=== PATIENT | female | born 1950 | race African-American/Black ===

== ENCOUNTER → 2016-12-29 | Day surgery (SDC) | payer OTHER ==
[~2016-12-29] VITALS: Ht 160 cm; Wt 101.8 kg
[~2016-12-29] MED LIST: DEXAMETHASONE SOD PHOS 4 MG/ML VIAL ONE; FAMOTIDINE 20 MG/2 ML VIAL ONE; FERRIC SUBSULFATE 8 ML TOP SOLN TOPICAL ONE; INSULIN HUMAN REGULAR 1,000 UNITS/10 ML VIAL SQ PRN; KETOROLAC TROMETHAMINE 30 MG/ML (IVP) VIAL ONE; LACTATED RINGER'S 1000 ML IV SCH; LISI20TA3 PO; METOPROLOL TARTRATE 25 MG TAB PO PRN; MIDAZOLAM HCL 2 MG/2 ML VIAL ONE; OXYC1TAB63 PO; PROPOFOL 200 MG/20 ML AMP IV ONE; SILVER NITR/POTASSIUM NITRATE APPLICATORS TOPICAL ONE; SODIUM CHLORID 0.9% 500 ML IV SCH; fentaNYL CITRATE 250 MCG/5 ML AMP ONE
[2016-12-29 11:32] VITALS: BP 147/82; PULSE 87; RESP 18; TEMP 98.3; O2SAT 100
[2016-12-29 15:00] VITALS: BP 158/68; PULSE 77; RESP 16; TEMP 97.7; O2SAT 97
--- NOTE | 2016-12-29 23:37 | MP ---
cc: ASHLIE CORDERO MD,GIULIA VENTURA,STACEY Hopkins MD DATE OF SURGERY: 12/29/2016 PREOPERATIVE DIAGNOSIS: 1. Enlarged uterus. 2. Thickened endometrial stripe. 3. Postmenopausal bleeding. POSTOPERATIVE DIAGNOSIS: 1. Enlarged uterus. 2. Thickened endometrial stripe. 3. Postmenopausal bleeding. PROCEDURE Examination under anesthesia, fractional dilation and curettage. SURGEON Stacey Ventura MD. RELAY WORKER Bishop assistant controller ANESTHESIA: Laryngeal mask anesthesia ESTIMATED BLOOD LOSS 20 cc HISTORY This is a 66-year-old female who has had postmenopausal bleeding a number of months. The exact duration is uncertain, found on imaging to have thickened endometrial stripe. Pap smear was normal. She declined office biopsy but was willing to undergo examination under anesthesia, fractional dilation and curettage, and she presents now for that endeavor. FINDINGS: On examination under anesthesia, there was no appreciably enlarged inguinal lymph nodes. External genitalia without mass or lesion. The vaginal mucosa is normal. The cervix grossly appears normal. The os is dilated and there is blood coming down from the uterus through the cervical os. The uterine cavity sounds to approximately 11 cm. The tissue obtained from the endocervix was relatively scant, however, the tissue obtained from the endometrium was high volume of polypoid exophytic tissue that was suspicious for neoplasm. PROCEDURE The patient taken to the operating room placed in dorsal lithotomy position after laryngeal mask anesthesia was administered. Time-out was undertaken. The patient was identified by sight, recognition and hospital ID bracelet and the proposed procedure was reviewed and confirmed. Exam under anesthesia was performed with findings as described above. She was prepped, draped in sterile fashion, in-and-out Beaulieu catheter to drain the bladder. The cervix was grasped, uterine cavity was sounded, endocervical curettings were obtained. Multiple passes circumferentially with a tissue combined as endocervical curetting. The cervix was further dilated and then endometrial curettings were performed. There were smooth areas on the endometrium with polypoid tissue against the left uterine wall near the fundus in the lower uterine segment in the ventral portion of the uterus. At the end of curetting the surfaces of the endometrium were pretty much gritty, circumferentially. There was good hemostasis. Monsel's solution was used on the tenaculum sites to render them hemostatic. There was no uterine bleeding. There were no remaining foreign objects in the vagina. Preliminary and final counts were correct. She was returned to dorsal supine position and was pending reversal of anesthesia when I left the operating room to precede her to the Post Anesthesia Care Unit. MD ELTON Harrison/BASILIO /1:52 PM /11:31 PM
== END | disposition home or self-care (01) ==
LOC: HSDC 10:44
PROVIDERS: ATTEND Obstetrics & Gynecology Gynecologic Oncology
DX: C54.1 Malignant neoplasm of endometrium (principal); N95.0 Postmenopausal bleeding; N85.2 Hypertrophy of uterus
CPT/HCPCS: 00940; 58120; 86850; 86900; 86901; 88305; J1100; J1885; J2250; J3010; J7120

== ENCOUNTER 2017-02-15 08:30 | Observation (INO) | payer OTHER ==
[~2017-02-15] VITALS: Ht 160 cm; Wt 100.1 kg
[~2017-02-15 08:30] MED LIST changes: -DEXAMETHASONE SOD PHOS 4 MG/ML VIAL ONE; -FAMOTIDINE 20 MG/2 ML VIAL ONE; -FERRIC SUBSULFATE 8 ML TOP SOLN TOPICAL ONE; -INSULIN HUMAN REGULAR 1,000 UNITS/10 ML VIAL SQ PRN; -KETOROLAC TROMETHAMINE 30 MG/ML (IVP) VIAL ONE; -LACTATED RINGER'S 1000 ML IV SCH; -METOPROLOL TARTRATE 25 MG TAB PO PRN; -MIDAZOLAM HCL 2 MG/2 ML VIAL ONE; -OXYC1TAB63 PO; -PROPOFOL 200 MG/20 ML AMP IV ONE; -SILVER NITR/POTASSIUM NITRATE APPLICATORS TOPICAL ONE; -SODIUM CHLORID 0.9% 500 ML IV SCH; -fentaNYL CITRATE 250 MCG/5 ML AMP ONE
[2017-02-15] MEDS ORDERED: SODIUM CHLORID 0.9% 500 ML IV PRN (09:15)
[2017-02-15] MEDS ORDERED: METOPROLOL TARTRATE 25 MG TAB PO PRN (09:15)
[2017-02-15] MEDS ORDERED: LEVOFLOXACIN 500 MG PREMIX INJ 100 ML IV SCH (09:15)
[2017-02-15] MEDS ORDERED: METRONIDAZOLE 500 MG/100 ML ISONTONIC SOLN IV SCH (09:15)
[2017-02-15] MEDS ORDERED: INSULIN HUMAN REGULAR 1,000 UNITS/10 ML VIAL SQ PRN (09:15)
[2017-02-15] MEDS ORDERED: CHLORHEXIDINE GLUCONATE 2 % 1 PACK (2 CLOTHS) TOPICAL PRN (09:15)
[2017-02-15] MEDS ORDERED: HEPARIN SODIUM - SQ 10,000 UNITS/ML VIAL SQ SCH (09:15)
[2017-02-15] MEDS ORDERED: POVIDONE IODINE 5% (ANTISEPSIS KIT) 4 APPLICATIONS EACH NARE PRN (09:15)
[2017-02-15 09:26] VITALS: BP 154/81; PULSE 89; RESP 20; TEMP 98.1; O2SAT 98
[2017-02-15] MEDS: LACTATED RINGER'S 1000 ML IV PRN ×2 (09:40→19:50)
[2017-02-15] MEDS ORDERED: PROPOFOL 200 MG/20 ML AMP IV ONE (10:19)
[2017-02-15] MEDS ORDERED: LACTATED RINGER'S 1000 ML INJ 2,000 ML IV ONE (10:19)
[2017-02-15] MEDS ORDERED: ONDANSETRON HCL 4 MG/2 ML VIAL IV PUSH ONE (10:19)
[2017-02-15] MEDS ORDERED: ACETAMINOPHEN 1000 MG/100 ML VIAL IV ONE (10:47)
[2017-02-15] MEDS ORDERED: FAMOTIDINE 20 MG/2 ML VIAL ONE (10:47)
[2017-02-15] MEDS ORDERED: MIDAZOLAM HCL 2 MG/2 ML VIAL ONE (10:48)
[2017-02-15] MEDS ORDERED: fentaNYL CITRATE 250 MCG/5 ML AMP ONE ×3 (10:48→15:05)
[2017-02-15] MEDS ORDERED: HYDROmorphone HCL PF 2 MG/ML VIAL ONE (11:50)
[2017-02-15] MEDS ORDERED: LIDOCAINE 1%/EPINEPHrine 1:100,000 SOLN 30 ML VIAL INFIL ONE (12:00)
--- NOTE | 2017-02-15 13:56 | EKG ---
Date Performed: 02/15/2017 Time Performed: 09:32:35 PTAGE: 66 years EKG: Sinus rhythm NORMAL ECG NO PREVIOUS TRACING DOCTOR: Debi Gamble Interpretating Date/Time 02/15/2017 13:55:40
[2017-02-15] MEDS ORDERED: SUGAMMADEX SODIUM 200 MG/2 ML VIAL IV PUSH ONE ×2 (14:10)
[2017-02-15] MEDS ORDERED: diphenhydrAMINE HCL 25 MG CAP PO PRN (14:45)
[2017-02-15] MEDS ORDERED: ONDANSETRON HCL 4 MG/2 ML VIAL IVP PRN (14:45)
[2017-02-15] MEDS ORDERED: SODIUM CHLORIDE 0.9% FLUSH 10 ML FLUSH IV FLUSH PRN (14:45)
[2017-02-15] MEDS ORDERED: LORazepam 0.5 MG TAB PO PRN (14:45)
[2017-02-15] MEDS ORDERED: oxyCODONE/ACETAMINOPHEN 5 MG/325 MG TAB PO PRN ×2 (14:45)
[2017-02-15] MEDS: KETOROLAC TROMETHAMINE 30 MG/ML (IVP) VIAL IVP SCH ×2 (15:00→20:02)
[2017-02-15] MEDS: D5-1/2 NS + KCL 20 MEQ INJ 1,000 ML IV SCH (15:00)
[2017-02-15] MEDS ORDERED: DO NOT ADM ANY ANTICOAGULANT DRUGS PRN (15:04)
[2017-02-15 16:51] VITALS: BP 147/69; PULSE 88; RESP 16; TEMP 97; O2SAT 97
[2017-02-15 20:00] VITALS: BP 126/60; PULSE 71; RESP 18; TEMP 96; O2SAT 100
[2017-02-15] MEDS: SODIUM CHLORIDE 0.9% FLUSH 10 ML FLUSH IV FLUSH SCH (20:02)
[2017-02-16] VITALS: BP 121/69; PULSE 69; RESP 17; TEMP 97; O2SAT 96
[2017-02-16] MEDS: D5-1/2 NS + KCL 20 MEQ INJ 1,000 ML IV SCH (01:48)
[2017-02-16] MEDS: KETOROLAC TROMETHAMINE 30 MG/ML (IVP) VIAL IVP SCH ×2 (01:48→07:45)
[2017-02-16 04:00] VITALS: BP 135/67; PULSE 63; RESP 16; TEMP 96.4; O2SAT 100
[2017-02-16 07:14] LABS: AUTOMATED NEUTROPHIL # 13.8 TH/MM3 (1.8-7.7); BASOPHIL % 0.2 % (0.0-2.0); HEMATOCRIT 33.2 % (35.0-46.0); HEMO FLAGS AUTO DIFF; LYMPH % 6.8 % (9.0-44.0); LYMPHOCYTE # 1.1 TH/MM3 (1.0-4.8); MEAN CELL VOLUME 77.8 FL (80.0-100.0); MEAN CORPUSCULAR HEMOGLOBIN 24.8 PG (27.0-34.0); MEAN CORPUSCULAR HGB CONC 31.9 % (32.0-36.0); MONO % 6.6 % (0.0-8.0); NEUT % 86.4 % (16.0-70.0); PLATELET COUNT 222 TH/MM3 (150-450); RED BLOOD COUNT 4.27 MIL/MM3 (4.00-5.30); RED CELL DISTRIBUTION WIDTH 14.6 % (11.6-17.2)
[2017-02-16 07:18] LABS: BICARBONATE 24.4 MEQ/L (21.0-32.0)
[2017-02-16 07:24] LABS: POTASSIUM 4.1 MEQ/L (3.5-5.1)
[2017-02-16] MEDS: SODIUM CHLORIDE 0.9% FLUSH 10 ML FLUSH IV FLUSH SCH (07:45)
[2017-02-16] MEDS ORDERED: OXYC1TAB63 PO (07:46)
[2017-02-16 08:00] VITALS: BP 133/60; PULSE 79; RESP 18; TEMP 98.1; O2SAT 97
[2017-02-16 08:11] LABS: PLATELET ESTIMATE SMEAR NORMAL (NORMAL)
[2017-02-16 08:12] LABS: PLATELET MORPHOLOGY NORMAL (NORMAL); SCAN/DIFF AUTO DIFF CONFIRMED
[2017-02-16] MEDS ORDERED: NON-FORMULARY DRUG (Lisinopril-Hctz 1 TAB) PO SCH (09:00)
[2017-02-16] MEDS ORDERED: LISINOPRIL 20 MG TAB PO SCH (09:00)
[2017-02-16] MEDS ORDERED: HYDROCHLOROTHIAZIDE 25 MG TAB PO SCH (09:00)
--- NOTE | 2017-02-17 09:46 | MP ---
cc: ASHLIE CORDERO MD,GIULIA VENTURA,STACEY Hopkins MD DATE OF SURGERY 02/15/2017 PREOPERATIVE DIAGNOSES 1. Grade 2 endometrial adenocarcinoma. 2. Enlarged uterus, leiomyomas. POSTOPERATIVE DIAGNOSES 1. Grade 2 endometrial adenocarcinoma. 2. Enlarged uterus, leiomyomas. PROCEDURE Robotic-assisted laparoscopic hysterectomy, bilateral salpingo-oophorectomy. 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 ANESTHESIA General endotracheal anesthesia. ESTIMATED BLOOD LOSS 200 cc. IV FLUIDS 2000 cc. URINE OUTPUT 300 cc. HISTORY This is a 66-year-old female with postmenopausal bleeding, who underwent endometrial sampling. Biopsy showed a grade 2 endometrial adenocarcinoma. Exam showed an enlarged uterus. She was counseled regarding these findings and presents for surgical management. STATEMENT OF COMPLEXITY The complexity of this case was increased due to the markedly enlarged size of the uterus as well as increased body habitus, 101 kg, increasing the technical difficulties of the case, requiring additional time to accomplish surgical objectives and modifier should be applied accordingly. FINDINGS The uterine cavity sounded to approximately 12 cm. The uterus itself was enlarged to approximately 14-cm with some lobular changes suggestive of leiomyomas. The tubes and ovaries grossly appeared normal. There were no appreciably enlarged pelvic or para-aortic lymph nodes. The peritoneal surfaces were smooth. There were no peritoneal implants. The uterus once removed was evaluated by pathologist. The primary tumor was approximately 2 cm in diameter. It was exophytic, was grossly confined to the endometrium with no overt evidence of invasion, no endocervical extension, no other overt cancer-related abnormality detected. Leiomyomas were seen throughout the uterine wall. PROCEDURE The patient was taken to the operating room, placed in dorsal lithotomy position. After general endotracheal anesthesia was administered time-out was undertaken. The patient was identified by [place] ID bracelet and the proposed procedure was reviewed and confirmed. She was carefully positioned in padded Stan stirrups. Her arms were padded and secured to the sides. She was further secured to the operating table with egg crate padding tape in across chest over the shoulder fashion. All sites noted be properly aligned with no malalignments or pressure points. She was prepped and draped in sterile fashion, placed in high lithotomy position, cervix grasped, uterine cavity sounded cervix dilated and a large V-Care manipulator inserted and secured in the usual fashion, Beaulieu catheter placed in the bladder. She was returned to low lithotomy position. Change of sterile gloves was undertaken. We confirmed an orogastric tube in the stomach on suction. With manual elevation of the abdominal wall and direct laparoscopic visualization, a 5-mm cannula was introduced into the left upper quadrant and atraumatic entry was confirmed. Carbon dioxide gas was insufflated into the peritoneal cavity. A 12-mm cannula was placed in the midline above the umbilicus, an 8-mm cannula was placed in right upper quadrant. In the left lateral quadrant the original 5 exchanged for an 8-mm cannula. She was placed in Trendelenburg position. Peritoneal washings were obtained for cytology. The anatomy was surveyed with findings as described above. Three Ray-Melissa sponges were placed around the root of the small bowel mesentery, the robotic system brought into the operative field and attached in the usual fashion. Monopolar scissors, fenestrated bipolar forceps and ProGrasp manipulators were placed in arms #1, 2 and 3 respectively and I took my place at the surgeon's console. The right round ligament was isolated, cauterized, transected. The anterior and posterior leaves of the broad ligament were opened. The right ureter was identified. The right infundibulopelvic ligament was isolated. The intervening peritoneum was opened. The infundibulopelvic ligament was isolated to the level of the pelvic brim where it was cauterized and transected. The posterior peritoneum was opened along the right side of the uterus and cervix and the right vesicouterine peritoneum was dissected off the lower uterine segment and cervix. The right uterine vessels were skeletonized and cauterized. Attention was directed toward the left side where the left round ligament was isolated, cauterized and transected. The anterior and posterior leaves of the broad ligament were opened. The left ureter was identified, the left infundibulopelvic ligament was isolated. The intervening peritoneum was opened. The infundibulopelvic ligament was isolated to the level of the pelvic brim where it was cauterized and transected. Posterior peritoneum was opened along the left side of the uterus and cervix and the left vesicouterine peritoneum was dissected off the lower uterine segment and cervix. The left uterine vessels were skeletonized, cauterized and transected as were the cardinal, paracervical and uterosacral ligaments. Attention was redirected to the right side where now the uterine vessels were transected. The cardinal, paracervical and uterosacral ligaments were isolated, cauterized and transected in a stepwise fashion. Circumferential colpotomy was performed following the wide perimeter of the V-Care manipulator and from this point I left the surgeon's console to the bedside to help facilitate delivery of the specimen which was quite large relative to the pelvic outlet. With manipulation, repositioning, countertraction with tenaculums and slow, steady efforts, the specimen was able to be delivered in an atraumatic fashion. Specimen included uterus, cervix, tubes and ovaries and a pneumooccluder balloon was placed in the vagina to maintain pneumoperitoneum. I returned to the surgeon's console. Instruments 1 and 3 were exchanged for needle drivers as a 0 Vicryl suture was introduced. The vaginal cuff was closed starting at the left corner, a full-thickness closure including the edge of the uterosacral ligament and posterior peritoneum, tied via instrument tie. The suture was held on countertraction as a running continuous closure, full-thickness was carried across the vaginal apex to the contralateral corner where it was similarly secured, fixed and tied. The needle was cut and removed. The integrity of the bladder was confirmed by filling the bladder with saline dyed with methylene blue. There was a good margin between the vaginal cuff suture line and the edge of the bladder. There were no weak spots or thin spots, no extravasation of dye. Good peristalsis of ureters bilaterally and the bladder was drained. The pelvis was thoroughly irrigated, rendered free of blood and clot and hemostatic Yared powder was placed across the vaginal cuff and lateral pelvic sidewalls. Preliminary pathology came back showing a small noninvasive tumor. It was felt that staging lymphadenectomy would be associated with morbidity that exceeded benefit. It was felt that all reasonable surgical objectives in this individual had been completed. Therefore the robotic instruments were removed. The robotic system was disengaged from the operative field. I reentered the bedside under sterile condition. Each of the three Ray-Melissa sponges that had been placed in the peritoneal cavity were removed through the 12-mm cannula. Each were inspected and noted to be removed in their entirety. Visual inspection of peritoneal cavity revealed no remaining foreign objects and preliminary count was correct. The 12-mm fascial defect was closed with interrupted 0 Vicryl sutures tied securely, rendered the fascia completely airtight and hemostatic. The remaining cannulas were withdrawn. Carbon dioxide gas was removed from the peritoneal cavity. 3-0 Vicryl subcutaneous, 3-0 Vicryl subcuticular and Steri-Strips used to close these incisions. She was returned to dorsal lithotomy position where exam confirmed the vaginal cuff was well supported, hemostatic. There were no vaginal lacerations, no bleeding except for superficial irritation at the introitus rendered hemostatic with silver nitrate. There were no remaining foreign objects in the vagina. Final counts were correct. She was returned to dorsal supine position and was pending reversal of anesthesia when I left the operating room to precede her to the Post Anesthesia Care Unit. Stacey Ventura MD KM/SSB /8:30 AM /9:19 AM
--- NOTE | 2017-02-20 19:19 | MD ---
cc: ASHLIE CORDERO MD,GIULIA VENTURA,STACEY Hopkins MD ADMISSION DATE: 02/15/2017 DISCHARGE DATE: 02/16/2017 PROCEDURE PERFORMED 02/15/2017: Robotic-assisted laparoscopic hysterectomy and bilateral salpingo-oophorectomy. DIAGNOSIS: Endometrial cancer, leiomyomas. HOSPITAL COURSE: She did well during the first 24 hours postop hemodynamically stable, tolerating oral intake. Beaulieu catheter removed pending voiding. In's and out's 2040/1200. Labs: Hemoglobin and hematocrit 10.6 and 33.2, white count 16, platelet count 222,000. Electrolytes essentially normal. Potassium 4.1, BUN and creatinine 8 and 0.96. EXAMINATION: VITAL SIGNS: She is afebrile, pulse 60 to 88, respirations 16 to 18, blood pressure 121-147 / 60-69, O2 saturations while awake greater than or equal to 97%. GENERAL: Alert and oriented x3 and in no acute distress. LUNGS: Clear except for mild basilar rales. CARDIOVASCULAR: Regular rate and rhythm. ABDOMEN: Soft. Incision is clean and dry. 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 EXTREMITIES: Nontender. ASSESSMENT: Postoperative day number one doing well. Findings - preliminary pathology reviewed. Activity restrictions discussed. Questions were answered. She is doing well and feels well and should be ready for discharge to home. PLAN: Therefore anticipate discharge to home. Our office number was made available. She is to contact our office to schedule follow up in two weeks. She is to resume prior medications and has a prescription for Percocet for pain and she is to contact us should she have any questions or problems between now and the time of scheduled discharge. MD ELTON Harrison/MARIO /7:50 AM /7:13 PM
== END 2017-02-16 10:25 | disposition home or self-care (01) ==
LOC: HSDC 08:30 → HSDI 14:48 → HOCB 15:58
PROVIDERS: ADMIT Obstetrics & Gynecology Gynecologic Oncology; ATTEND Obstetrics & Gynecology Gynecologic Oncology
DX: C54.1 Malignant neoplasm of endometrium (principal); D21.9 Benign neoplasm of connective and other soft tissue, unspecified; N85.2 Hypertrophy of uterus; Z01.810 Encounter for preprocedural cardiovascular examination
CPT/HCPCS: 00840; 58554; 80048; 85025; 86850; 86900; 86901; 88112; 88305; 88307; 88331; 93005; G0378; J0131; J1170; J1885; J1956; J2250; J2405; J3010; J3480; J7120

== ENCOUNTER 2018-02-09 06:03 | Day surgery (SDC) | payer OTHER ==
[~2018-02-09] VITALS: Ht 157.5 cm; Wt 75.0 kg
[2018-02-09 07:03] VITALS: BP 148/85; PULSE 100; RESP 17; TEMP 98.4; O2SAT 94
[2018-02-09] MEDS ORDERED: CHLORHEXIDINE GLUCONATE 2 % 1 PACK (2 CLOTHS) TOPICAL SCH (07:30)
[2018-02-09] MEDS ORDERED: POVIDONE IODINE 5% (ANTISEPSIS KIT) 4 APPLICATIONS EACH NARE SCH (07:30)
[2018-02-09] MEDS ORDERED: VANCOMYCIN 1000 MG/NS 250 ML - implanted port/tunneled catheter IV SCH ×2 (07:30)
[2018-02-09] MEDS ORDERED: fentaNYL CITRATE 250 MCG/5 ML AMP ONE (07:54)
[2018-02-09] MEDS ORDERED: MIDAZOLAM HCL 5 MG/5 ML VIAL ONE (07:54)
[2018-02-09] MEDS ORDERED: LIDOCAINE 1%/EPINEPHrine 1:100,000 SOLN 30 ML VIAL ONE (07:54)
[2018-02-09 09:08] VITALS: BP 153/81; PULSE 94; RESP 18; TEMP 97.7; O2SAT 94
--- NOTE | 2018-02-09 09:09 | PD.RAD ---
Post Procedure Progress Note Pre Procedure Diagnosis: (1) Endometrial ca Post Procedure Diagnosis: (1) Endometrial ca Procedure Date: Feb 09, 2018 Supervising Radiologist: Noel Porter Proceduralist/Assist: RT Laurie(R), RT Wilbert(R) Anesthesia: Conscious Sedation Plan of Activity Patient to Unit: [facility] Patient Condition: Good See PACS Report for procedural detail/treatment Noel Porter MD Feb 09, 2018 09:09
[2018-02-09 09:23] VITALS: BP 154/79; PULSE 95; RESP 19; O2SAT 98
[2018-02-09 09:53] VITALS: BP 155/75; PULSE 94; RESP 18; O2SAT 97
[2018-02-09 10:23] VITALS: BP 159/81; PULSE 93; RESP 19; O2SAT 94
--- NOTE | 2018-02-09 12:19 | RADRPT ---
EXAM DATE/TIME: 02/09/2018 08:12 [facility] COMPARISON: No previous studies available for comparison. INDICATIONS : Patient presents with endometrial cancer in need of port placement. MEDICAL HISTORY : HTN Hematuria Endometrial Cancer GERD Asthma Pulm Mets CA Liver Mets SURGICAL HISTORY : Cystoscopy Endometrial Bx Hysterectomy Esophogeal Dilation ENCOUNTER: Initial ACUITY: 1 week PAIN SCORE: 0/10 FLUORO TIME: 0.2 minutes IMAGE SERIES: 1 SEDATION TIME: 30 minutes ACCESS: Right internal jugular vein SEDATION: 1.) 3 mg midazolam (Versed) IV 2.) 150 mcg fentanyl (Sublimaze) IV Prophylactic antibiotics were administered with appropriate pre-procedure timing. Vancomycin within 2 hours of procedure, Ancef (or alternative) within 1 hour of procedure. DEVICE: 1. 8 Green[place]ic single lumen [id number] PROCEDURE : 1. Continuous pulse oximetry and EKG monitoring. 2. Intravenous conscious sedation. 3. Ultrasound guidance for venous access. 4. Fluoroscopic guided implantable central venous port placement. The patient was placed supine. The neck was prepped in sterile fashion. Full sterile technique was u sed, including cap, mask, sterile gloves and gown, and a large sterile sheet. Hand hygiene and 2% ch lorhexidine Betadine was utilized per protocol for cutaneous antisepsis with appropriate dry time for site. Sterile gel and sterile probe cover were utilized for ultrasound guidance. The skin and sub cutaneous tissues were infiltrated with local anesthetic solution. Under direct ultrasound guidance, central venous access was accomplished in the targeted vessel. The ultrasound images depicting access guidance were stored and saved to PACS for permanent record. A s ubcutaneous pocket was created using blunt dissection. The port was introduced to the pocket. The c atheter tubing was fed through a subcutaneous tunnel to the venotomy site. The catheter tubing was c ut to a suitable length and then was introduced through a valved Peel-Away sheath and positioned with catheter tubing tip at the cavo-atrial junction level. The pocket incision was closed with subcutic ular Vicryl suture. Steri-Strips were applied. The port was flushed and locked with heparin solutio n per protocol. Sterile dressing was applied to the site. The patient tolerated the procedure well. Conscious sedation was performed with the prescribed dosages and duration as above in the presence of an independent trained radiology nurse to assist in the monitoring of the patient. EKG and oximetry remained stable throughout the procedure. The patient tolerated the procedure well and there were no complications. The patient was sent to post anesthesia recovery in stable condition. CONCLUSION: Uncomplicated ultrasound and fluoroscopic guided implanted central venous port catheter placement as described in detail above. An 8 Greenlandic Power port was placed. Noel Porter MD on February 09, 2018 at 12:16 Board Certified Radiologist. This report was verified electronically.
--- NOTE | 2018-02-09 17:13 | RADRPT ---
EXAM DATE/TIME: 02/09/2018 00:00 [facility] COMPARISON: No previous studies available for comparison. INDICATIONS : Patient presents with endometrial cancer in need of port placement and IV access. MEDICAL HISTORY : HTN Hematuria Endometrial Cancer GERD Asthma Pulm Mets CA Liver Mets SURGICAL HISTORY : Cystoscopy Endometrial Bx Hysterectomy Esophogeal dilation ENCOUNTER: Initial ACUITY: 1 day PAIN SCORE: 0/10 IMAGE SERIES: ? ACCESS: Right basilic vein DEVICE(S): PROCEDURE : 1. Ultrasound guided venous access. The risks, benefits and alternatives to the procedure were explained and verbal and written consent w as obtained. The site was prepped in sterile fashion. Full sterile technique was used, including ca p, mask, sterile gloves and gown and a large sterile sheet. Hand hygiene and 2% chlorhexidine and/or betadine/alcohol prep was utilized per protocol for cutaneous antisepsis. Sterile gel and sterile p robe cover were utilized for ultrasound guidance. The skin and subcutaneous tissues were infiltrate d with local anesthetic solution. With ultrasound guidance the prescribed vein was punctured for venous access. A 4 Turkish dilator was placed and was flushed and locked with heparin. The patient tolerated procedure well and there were n o complications. CONCLUSION: Uncomplicated ultrasound guided venous access. Noel Porter MD on February 09, 2018 at 17:11 Board Certified Radiologist. This report was verified electronically.
== END 2018-02-09 11:20 | disposition home or self-care (01) ==
LOC: HROP 06:03 → HRIP 06:07 → HROP 11:20
PROVIDERS: ATTEND Obstetrics & Gynecology Gynecologic Oncology
DX: C54.1 Malignant neoplasm of endometrium (principal); C78.00 Secondary malignant neoplasm of unspecified lung; C78.7 Secondary malignant neoplasm of liver and intrahepatic bile duct; R31.9 Hematuria, unspecified; I10 Essential (primary) hypertension; J45.909 Unspecified asthma, uncomplicated; Z92.3 Personal history of irradiation; Z87.891 Personal history of nicotine dependence
CPT/HCPCS: 36410; 36561; 76937; 77001; 99152; 99153; C1788; J1642; J2250; J3010; J3370; J7050

== ENCOUNTER 2019-01-01 22:05 | Inpatient (IN) ==
[2019-01-01] MEDS ORDERED: Sod Chloride 0.9% Inj 1,000 ML IV.SIG ONE (22:32)
--- NOTE | 2019-01-01 22:54 | XR ---
EXAM DATE: 01/01/2019 10:45 PM EST AGE/SEX: 68 years / Female INDICATIONS: Short of breath. CLINICAL DATA: This is the patient's initial encounter. Patient reports that signs and symptoms have been present for 3 days and indicates a pain score of 0/10. MEDICAL/SURGICAL HISTORY: . HTN Hematuria Endometrial Cancer GERD Asthma Pulm Mets CA Liver Met s. None. Cystoscopy Endometrial Bx Hysterectomy Esophogeal Dilation COMPARISON: No prior exams available for comparison. FINDINGS: The lungs are symmetrically aerated. There is blunting of the lateral costophrenic angle on the left side. The right hemidiaphragm is well delineated. The heart is normal in size. It is more catheter ti p in the distal superior vena cava. No evidence of pneumothorax. CONCLUSION: Findings suggest small left pleural effusion. Electronically signed by: David Washburn MD Board Certified Radiologist 01/01/2019 10:53 PM EST
[2019-01-01 23:03] LABS: Baso % (Auto) 0.5 % (0.0-2.0); Eos % (Auto) 0.3 % (0.0-4.0); Hematocrit 34.9 % (35.0-46.0); Hemoglobin 11.2 gm/dL (11.6-15.3); Lymph # (Auto) 0.9 th/mm3 (1.0-4.8); Lymph % (Auto) 8.5 % (9.0-44.0); Mean Corpuscular Hemoglobin 26.4 pg (27.0-34.0); Mean Corpuscular Volume 82.7 fL (80.0-100.0); Mean Platelet Volume 8.9 fL (7.0-11.0); Mono # (Auto) 1.3 th/mm3 (0.0-0.9); Mono % (Auto) 12.3 % (0.0-8.0); Neut % (Auto) 78.4 % (16.0-70.0); Platelet Count 435 th/mm3 (150-450); Red Blood Count 4.23 mil/mm3 (4.00-5.30); Red Cell Distribution Width 14.3 % (11.6-17.2); White Blood Count 10.2 th/mm3 (4.0-11.0)
[2019-01-01 23:15] LABS: Alanine Aminotransferase 17 U/L (10-53); Anion Gap 14 meq/L (5-15); Aspartate Aminotransferase 47 U/L (15-37); Blood Urea Nitrogen 24 mg/dL (7-18); Calcium 8.8 mg/dL (8.5-10.1); Carbon Dioxide 22.7 meq/L (21.0-32.0); Chloride 104 meq/L (98-107); Glomerular Filtration Rate 53 mL/min (>89); Glucose,Random 103 mg/dL (74-106); Lipase 75 U/L (73-393); Magnesium 2.4 mg/dL (1.5-2.5); Potassium 3.3 meq/L (3.5-5.1); Sodium 141 meq/L (136-145)
[2019-01-01 23:19] LABS: Alkaline Phosphatase 84 U/L (45-117); Total Protein 7.7 g/dL (6.4-8.2)
[2019-01-01 23:23] LABS: Creatine Kinase 42 U/L (26-192)
[2019-01-01 23:25] LABS: Activated Partial Thrombo Time 28.9 sec (23.4-31.7); INR 1.1 Ratio; Prothrombin Time 10.7 sec (9.8-11.6)
[2019-01-01 23:27] LABS: D-Dimer 14.5 mg/L FEU (0.00-0.50)
--- NOTE | 2019-01-01 23:30 | ED ---
HPI General Chief complaint: Nausea/Vomiting/Diarrhea Stated complaint: N/V Time Seen by Provider: 01/01/19 22:32 Source: patient Limitations: no limitations History of Present Illness HPI narrative: The patient is a 68 year old female who presents to the [facility] emergency department with a history of endometrial cancer currently under the care of Dr. Hsu a local oncologist and receiving chemotherapy with her last dose administered December 04 who presents with reportedly feeling unwell since last week when she had a PET scan done. She reports that overall she has had difficulty tolerating this new chemotherapy that she received on December 04. She reports that she has had intermittent nausea and vomiting as well as diarrhea. She reports that last week she did receive some IV fluids with Dr. Hsu as an outpatient as well as supplemental potassium for hypokalemia. She denies taking any nausea medication at home. She reports that she has been vomiting 2-3 times per day and is unable to keep anything down at all for the last 3 days. She reports that she last had diarrhea a few days ago. She denies being on any recent antibiotics. She denies having any fevers. She reports that over the last 3 days she has had increasing fatigue and also begun to have a chest tightness in the center of her chest with shortness of breath. She reports that the tightness occurs when she tries to take a deep breath. She reports that today she began to have a cough productive of white phlegm. She denies having any lower extremity edema, erythema. She denies having any prior history of cardiac disease, DVT, or PE. On review of systems otherwise, the patient denies having any neck pain, abdominal pain, urinary symptoms, or neurologic symptoms. Related Data Home Medications Medication Instructions Recorded Confirmed lisinopril 25 mg PO DAILY 01/01/19 01/01/19 Allergies Allergy/AdvReac Type Severity Reaction Status Date / Time penicillin G Allergy Severe Swelling Verified 01/01/19 23:09 of Lip/Tongue/Throat Review of Systems ROS: all other systems reviewed are negative [facility] Medical History Medical History Endometrial cancer (Acute) H/O: hysterectomy (Acute) Hypertension (Acute) Surgical History Surgical History H/O thyroidectomy (Acute) Social History Social History Substance History: No History of Abuse Smoking Status: Former smoker How Often Do You Have a Drink Containing Alcohol: Never Recent Travel in [facility] within the Last 8 Weeks: No Recent Out of Country Travel within the Last 8 Weeks: No Immunization History Tetanus Immunization: Unsure Exam Const General: cooperative, no acute distress and well developed Nutritional Appearance: well nourished Orientation: alert, awake and oriented x3 HENMT Head: normocephalic and atraumatic Nose: no nasal discharge and no epistaxis Mouth: moist mucous membranes Throat: posterior oropharynx normal and uvula midline Eyes Sclera: normal sclerae Pupils: PERRL Neck Neck: no meningeal signs, trachea midline and no JVD Resp Effort & Inspection: no use of accessory muscles Auscultation: clear to auscultation bilaterally, no crackles, no rhonchi and no wheezes Cardio Rate: tachycardic (Sinus tachycardia in the low 100s. No pulse deficits to the extremities on simultaneous auscultation and palpation of her radial artery.) Rhythm: regular rhythm Heart Sounds: no murmurs GI Inspection: non-distended Palpation: soft, no hepatosplenomegaly and tender in the epigastrum; not in the LLQ, not in the RLQ, not in the LUQ, not in the RUQ, Miramontes's sign negative and with no rebound tenderness Auscultation: normal bowel sounds Back/Spine/Pelvis Back: no CVA tenderness Skin General: dry skin (warm) Neuro General: alert, awake, oriented x3 and other Speech: speech normal Motor: no movement abnormalities noted Extrem General: normal to inspection (2+ pulses in all 4 extremities.), no calf tenderness, no clubbing, no cyanosis and no edema Psych Mood: congruent mood Affect: normal affect Judgment: judgment good Course Initial Documented Vital Signs Temperature 99.2 F 01/01/19 22:08 Pulse Rate 124 H 01/01/19 22:08 Respiratory Rate 24 01/01/19 22:08 Blood Pressure 120/61 01/01/19 22:08 Pulse Oximetry 100 01/01/19 22:08 Last Documented Vital Signs Temperature 99.2 F 01/01/19 22:08 Pulse Rate 104 H 01/02/19 04:33 Respiratory Rate 18 01/02/19 04:33 Blood Pressure 117/58 L 01/02/19 04:33 Pulse Oximetry 98 01/02/19 04:33 Medical Decision Making MDM Narrative Medical decision making narrative: During the course of the patient's emergency department visit, the patient's history, examination, and differential diagnosis were reviewed with the patient. The patient was placed on a cook candy with oximetry and frequent blood pressure monitoring. The patient had IV access obtained and blood work sent for analysis. A diagnostic evaluation was started regarding the patient's chest tightness, shortness of breath, nausea , vomiting, and diarrhea. The patient was initially provided normal saline 1 L IV fluid bolus, Zofran 4 mg IV. The patient's diagnostic studies are remarkable for a white count of 10.2, hemoglobin 11.2, platelets 435 with a neutrophil predominance of 78.4, lymphocytes 8.5, monocytes 12.3. PT PTT within normal limits, d-dimer is elevated at 14.5, CTA to rule out PE was ordered. Chemistries remarkable for potassium 3.3, BUN 24, creatinine 1.23, GFR 53, AST 47, cardiac enzymes within normal limits, BNP is 8, albumin is 2.3, lipase 75. The patient's initial lactic acid is 2.2, repeat after IV fluids is 1.0, urinalysis shows cloudy urine 100 protein small occult blood, small leukocyte esterase, 9 to, few bacteria, many mucus, culture indicated. The patient's chest x-ray showed findings suggestive of a small left pleural effusion. CTA shows emphysema without infiltrate or mass, subcentimeter pulmonary nodules, likely benign, small bilateral pleural effusions, abdominal ascites with small hiatal hernia, no evidence for central pulmonary embolism. Given the patient's abnormalities noted on urine out is given ciprofloxacin 400 mg IV. The patient's case including history, pertinent physical examination findings, and laboratory studies were discussed with Dr. lowry. It was agreed that the patient would be admitted to the hospitalist service. The patient's results were discussed with the patient, including the plan of care. I explained that further testing and/ or monitoring is indicated based on the patient's history, examination, and/ or laboratory findings. Therefore, I recommended admission for additional evaluation. The patient expressed understanding and was agreeable with this plan. The patient was admitted to the hospital in stable condition and sent to a bed under the care of the [facility] service. Medical Screen Exam Complete: Yes Emergency Medical Condition: Yes Differential Diagnosis Differential Diagnosis: Pneumonia, versus pulmonary embolism, versus acute coronary syndrome, versus congestive heart failure Medical Records Medical records reviewed: Yes I reviewed the patient's medical records. Lab Data Lab results reviewed: Yes I reviewed the patient's lab results. Result diagrams: 01/01/19 22:50 01/01/19 22:50 Lab Results 01/01/19 01/01/19 01/01/19 Range/Units 22:50 22:50 22:50 WBC (4.0-11.0) th/mm3 RBC (4.00-5.30) mil/mm3 Hgb (11.6-15.3) gm/dL Hct (35.0-46.0) % MCV (80.0-100.0) fL MCH (27.0-34.0) pg MCHC (32.0-36.0) % RDW (11.6-17.2) % Plt Count (150-450) th/mm3 MPV (7.0-11.0) fL Neut % (Auto) (16.0-70.0) % Lymph % (Auto) (9.0-44.0) % [place] % (Auto) (0.0-8.0) % Eos % (Auto) (0.0-4.0) % Baso % (Auto) (0.0-2.0) % Neut # (Auto) (1.8-7.7) th/mm3 Lymph # (Auto) (1.0-4.8) th/mm3 [place] # (Auto) (0.0-0.9) th/mm3 Eos # (Auto) (0.0-0.4) th/mm3 Baso # (Auto) (0.0-0.2) th/mm3 WBC Differential Differential Comment PT 10.7 (9.8-11.6) sec INR 1.1 Ratio APTT 28.9 (23.4-31.7) sec D-Dimer Quant (PE/DVT) 14.50 H (0.00-0.50) mg/L FEU Sodium 141 (136-145) meq/L Potassium 3.3 L (3.5-5.1) meq/L Chloride 104 (98-107) meq/L Carbon Dioxide 22.7 (21.0-32.0) meq/L Anion Gap 14 (5-15) meq/L BUN 24 H (7-18) mg/dL Creatinine 1.23 H (0.50-1.00) mg/dL Estimated GFR 53 L (>89) mL/min Random Glucose 103 (74-106) mg/dL Lactic Acid (0.4-2.0) mmol/L Calcium 8.8 (8.5-10.1) mg/dL Magnesium 2.4 (1.5-2.5) mg/dL Total Bilirubin 0.3 (0.2-1.0) mg/dL AST 47 H (15-37) U/L ALT 17 (10-53) U/L Alkaline Phosphatase 84 (45-117) U/L Total Creatine Kinase 42 (26-192) U/L Troponin I Less than 0.02 L (0.02-0.05) ng/mL B-Natriuretic Peptide 8 (0-100) pg/mL Total Protein 7.7 (6.4-8.2) g/dL Albumin 2.3 L (3.4-5.0) g/dL Lipase 75 (73-393) U/L Urine Color (Yellw/Straw) Urine Clarity (Clear) Urine pH (5.0-8.5) Ur Specific [place] (1.002-1.035) Urine Protein (Neg-Trace) mg/dL Urine Glucose (UA) (Negative) mg/dL Urine Ketones (Negative) mg/dL Urine Occult Blood (Negative) Urine Nitrate (Negative) Urine Bilirubin (Negative) Urine Ictotest (Negative) Urine Urobilinogen (Less than 2) mg/dL Ur Leukocyte Esterase (Negative) Urine RBC (0-3) /hpf Urine WBC (0-5) /hpf Ur Squamous Epith Cells (0-5) /hpf Urine Bacteria (None) /hpf Hyaline Casts (0-3) /lpf Urine Mucus (Occasional) /lpf Micro UA Comment Ur Microscopic Review Urine Culture Comments 01/01/19 01/01/19 01/01/19 Range/Units 22:50 23:00 23:05 WBC 10.2 (4.0-11.0) th/mm3 RBC 4.23 (4.00-5.30) mil/mm3 Hgb 11.2 L (11.6-15.3) gm/dL Hct 34.9 L (35.0-46.0) % MCV 82.7 (80.0-100.0) fL MCH 26.4 L (27.0-34.0) pg MCHC 32.0 (32.0-36.0) % RDW 14.3 (11.6-17.2) % Plt Count 435 (150-450) th/mm3 MPV 8.9 (7.0-11.0) fL Neut % (Auto) 78.4 H (16.0-70.0) % Lymph % (Auto) 8.5 L (9.0-44.0) % [place] % (Auto) 12.3 H (0.0-8.0) % Eos % (Auto) 0.3 (0.0-4.0) % Baso % (Auto) 0.5 (0.0-2.0) % Neut # (Auto) 8.0 H (1.8-7.7) th/mm3 Lymph # (Auto) 0.9 L (1.0-4.8) th/mm3 [place] # (Auto) 1.3 H (0.0-0.9) th/mm3 Eos # (Auto) 0.0 (0.0-0.4) th/mm3 Baso # (Auto) 0.0 (0.0-0.2) th/mm3 WBC Differential . Differential Comment Auto diff final PT (9.8-11.6) sec INR Ratio APTT (23.4-31.7) sec D-Dimer Quant (PE/DVT) (0.00-0.50) mg/L FEU Sodium (136-145) meq/L Potassium (3.5-5.1) meq/L Chloride (98-107) meq/L Carbon Dioxide (21.0-32.0) meq/L Anion Gap (5-15) meq/L BUN (7-18) mg/dL Creatinine (0.50-1.00) mg/dL Estimated GFR (>89) mL/min Random Glucose (74-106) mg/dL Lactic Acid 2.2 H (0.4-2.0) mmol/L Calcium (8.5-10.1) mg/dL Magnesium (1.5-2.5) mg/dL Total Bilirubin (0.2-1.0) mg/dL AST (15-37) U/L ALT (10-53) U/L Alkaline Phosphatase (45-117) U/L Total Creatine Kinase (26-192) U/L Troponin I (0.02-0.05) ng/mL B-Natriuretic Peptide (0-100) pg/mL Total Protein (6.4-8.2) g/dL Albumin (3.4-5.0) g/dL Lipase (73-393) U/L Urine Color Angelina (Yellw/Straw) Urine Clarity Cloudy H (Clear) Urine pH 5.0 (5.0-8.5) Ur Specific [place] 1.027 (1.002-1.035) Urine Protein 100 H (Neg-Trace) mg/dL Urine Glucose (UA) Negative (Negative) mg/dL Urine Ketones 20 (Negative) mg/dL Urine Occult Blood Small H (Negative) Urine Nitrate Negative (Negative) Urine Bilirubin Negative (Negative) Urine Ictotest Negative (Negative) Urine Urobilinogen 0.2 (Less than 2) mg/dL Ur Leukocyte Esterase Small H (Negative) Urine RBC 9 H (0-3) /hpf Urine WBC 22 H (0-5) /hpf Ur Squamous Epith Cells 23 (0-5) /hpf Urine Bacteria Few H (None) /hpf Hyaline Casts 53 (0-3) /lpf Urine Mucus Many H (Occasional) /lpf Micro UA Comment Culture indicated Ur Microscopic Review Not Reportable Urine Culture Comments Culture indicated 01/02/19 Range/Units 01:40 WBC (4.0-11.0) th/mm3 RBC (4.00-5.30) mil/mm3 Hgb (11.6-15.3) gm/dL Hct (35.0-46.0) % MCV (80.0-100.0) fL MCH (27.0-34.0) pg MCHC (32.0-36.0) % RDW (11.6-17.2) % Plt Count (150-450) th/mm3 MPV (7.0-11.0) fL Neut % (Auto) (16.0-70.0) % Lymph % (Auto) (9.0-44.0) % [place] % (Auto) (0.0-8.0) % Eos % (Auto) (0.0-4.0) % Baso % (Auto) (0.0-2.0) % Neut # (Auto) (1.8-7.7) th/mm3 Lymph # (Auto) (1.0-4.8) th/mm3 [place] # (Auto) (0.0-0.9) th/mm3 Eos # (Auto) (0.0-0.4) th/mm3 Baso # (Auto) (0.0-0.2) th/mm3 WBC Differential Differential Comment PT (9.8-11.6) sec INR Ratio APTT (23.4-31.7) sec D-Dimer Quant (PE/DVT) (0.00-0.50) mg/L FEU Sodium (136-145) meq/L Potassium (3.5-5.1) meq/L Chloride (98-107) meq/L Carbon Dioxide (21.0-32.0) meq/L Anion Gap (5-15) meq/L BUN (7-18) mg/dL Creatinine (0.50-1.00) mg/dL Estimated GFR (>89) mL/min Random Glucose (74-106) mg/dL Lactic Acid 1.0 (0.4-2.0) mmol/L Calcium (8.5-10.1) mg/dL Magnesium (1.5-2.5) mg/dL Total Bilirubin (0.2-1.0) mg/dL AST (15-37) U/L ALT (10-53) U/L Alkaline Phosphatase (45-117) U/L Total Creatine Kinase (26-192) U/L Troponin I (0.02-0.05) ng/mL B-Natriuretic Peptide (0-100) pg/mL Total Protein (6.4-8.2) g/dL Albumin (3.4-5.0) g/dL Lipase (73-393) U/L Urine Color (Yellw/Straw) Urine Clarity (Clear) Urine pH (5.0-8.5) Ur Specific [place] (1.002-1.035) Urine Protein (Neg-Trace) mg/dL Urine Glucose (UA) (Negative) mg/dL Urine Ketones (Negative) mg/dL Urine Occult Blood (Negative) Urine Nitrate (Negative) Urine Bilirubin (Negative) Urine Ictotest (Negative) Urine Urobilinogen (Less than 2) mg/dL Ur Leukocyte Esterase (Negative) Urine RBC (0-3) /hpf Urine WBC (0-5) /hpf Ur Squamous Epith Cells (0-5) /hpf Urine Bacteria (None) /hpf Hyaline Casts (0-3) /lpf Urine Mucus (Occasional) /lpf Micro UA Comment Ur Microscopic Review Urine Culture Comments Imaging Data Radiologist's impression: Chest X-Ray 01/01/19 22:33 CONCLUSION: Findings suggest small left pleural effusion. Chest CTA 01/02/19 00:00 CONCLUSION: 1. Emphysema without infiltrate or mass. 2. Subcentimeter pulmonary nodules, likely benign. CT chest in 6 months recommended. 3. Small bilateral pleural effusions. 4. Abdominal ascites with small hiatal hernia 5. No evidence for central pulmonary embolism. ECG Data Attestation: I personally reviewed and interpreted this ECG as follows: Interpretation: The patient had an EKG done on arrival. The patient's EKG reveals a sinus tachycardia rate of 114, QRS duration is 93 ms, QTC [address] segment abnormality is noted, ST segment downsloping in lead III , aVF. No acute ST segment elevation. Discharge Plan Discharge Disposition Patient Disposition: ED Admit(ED Internal Use Only) Discharge Order Discharge Orders: ED Use Only Admit Order (Routine); Ordered 01/02/19 Ordered By: Estella Lomeli Discharge Details Diagnosis: Dehydration, UTI (urinary tract infection), Shortness of breath Physicians Team ED Provider: Estella Lomeli Primary Care Provider: UNKNOWN, Attending Provider: Jodie Benitez Status ED Status: Admitted Patient
[2019-01-01 23:31] LABS: Albumin 2.3 g/dL (3.4-5.0)
[2019-01-01 23:52] LABS: Bacteria,Urine Few /hpf; Clarity,Urine Cloudy (Clear); Color,Urine Amber (Yellw/Straw); Glucose,Urine (UA) Negative (Negative); Hyaline Casts,Urine 53 /lpf (0-3); Leukocyte Esterase,Urine Small (Negative); Mucus,Urine Many /lpf (Occasional); Nitrite,Urine Negative (Negative); Specific Gravity,Urine 1.027 (1.002-1.035); Squamous Epithelial Cell,Urine 23 /hpf (0-5)
[2019-01-01 23:56] LABS: Urobilinogen,Urine 0.2 mg/dL (Less than 2)
[2019-01-01 23:58] LABS: Bilirubin,Urine Negative (Negative); Ictotest,Urine Negative (Negative)
--- NOTE | 2019-01-02 01:26 | CT ---
EXAM DATE: 01/02/2019 1:00 AM EST AGE/SEX: 68 years / Female INDICATIONS: Shortness of breath; rule out pulmonary embolus. CLINICAL DATA: This is the patient's initial encounter. Patient reports that signs and symptoms have been present for 1 day and indicates a pain score of 0/10. MEDICAL/SURGICAL HISTORY: Hypertension. Endometrial cancer Hysterectomy. Thyroidectomy. Port plac ement RADIATION DOSE: 9.31 CTDI (mGy) COMPARISON: No prior exams available for comparison. TECHNIQUE: Volumetric scanning was performed using a multi-row detector CT scanner during bolus infu choco of 72 ml Omnipaque 350 (iohexol) nonionic water-soluble contrast as a single exam dose. The gordon a was post processed with a variety of visualization algorithms including full volume maximum intensi ty projection and sliding thin slab reformation. Using automated exposure control and adjustment of t he mA and/or kV according to patient size, radiation dose was kept as low as reasonably achievable to obtain optimal diagnostic quality images. DICOM format image data is available electronically for r eview and comparison. FINDINGS: Pulmonary Arteries: No filling defects are seen in the central pulmonary arteries. The left and righ t pulmonary arteries are normal in diameter. Lung: No infiltrates seen. 4-5 mm nodule within the right upper lobe and right lower lobe. Similar-a ppearing nodule left lower lobe laterally. Effusion: Small left pleural effusions bilaterally. Mediastinum: No evidence of mediastinal or hilar adenopathy. Other: The axilla is unremarkable. Abdominal ascites. Small hiatal hernia. CONCLUSION: 1. Emphysema without infiltrate or mass. 2. Subcentimeter pulmonary nodules, likely benign. CT chest in 6 months recommended. 3. Small bilateral pleural effusions. 4. Abdominal ascites with small hiatal hernia 5. No evidence for central pulmonary embolism. Electronically signed by: Noble Daniel MD Board Certified Radiologist 01/02/2019 1:25 AM EST
[2019-01-02] MEDS ORDERED: Ciprofloxacin 400 MG/200 ML 400 MG/200 ML PIGGYBACK IV.SIG ONE (01:30)
[2019-01-02] MEDS ORDERED: Sodium Chlor 0.9% Inj 500 ML IV.SIG ONE (01:32)
[2019-01-02] MEDS ORDERED: Acetaminophen 325 MG Tablet PO PRN (06:04)
[2019-01-02] MEDS ORDERED: Bisacodyl 10 MG Supp RECTAL PRN (06:04)
[2019-01-02 06:51] LABS: Alanine Aminotransferase 16 U/L (10-53); Albumin 2.1 g/dL (3.4-5.0); Anion Gap 11 meq/L (5-15); Aspartate Aminotransferase 41 U/L (15-37); Blood Urea Nitrogen 20 mg/dL (7-18); Calcium 8.3 mg/dL (8.5-10.1); Carbon Dioxide 25.4 meq/L (21.0-32.0); Chloride 106 meq/L (98-107); Glomerular Filtration Rate 70 mL/min (>89); Glucose,Random 97 mg/dL (74-106); Potassium 3.2 meq/L (3.5-5.1); Sodium 142 meq/L (136-145)
[2019-01-02 06:53] LABS: Alkaline Phosphatase 76 U/L (45-117); Total Protein 6.8 g/dL (6.4-8.2)
--- NOTE | 2019-01-02 08:38 | P.HPIM ---
History of Present Illness Primary Care Physician: UNKNOWN Chief Complaint: generalized weakness History of Present Illness: patient is a 68 y/o female with history of endometrial cancer - on chemo, and hypertension who presented to ER with few day history of diarrhea, nausea and vomiting. she says that she just started the second cycle of her chemo later November. she says that she had a PET scan last week after which she stared to have non-bloody diarrhea, nausea and vomiting. she denies any fever or chills. she doesn't report any urinary complaints.she has mild periumbilical abdominal pain. she says that she's been feeling very weak after the chemo and now she's having sob when walking. she was supposed to have a blood work done today with . Review of Systems Review of Systems: all other systems reviewed are negative [facility] Medical History Medical History Endometrial cancer (Acute) H/O: hysterectomy (Acute) Hypertension (Acute) Surgical History Surgical History H/O thyroidectomy (Acute) Social History Social History Substance History: No History of Abuse Smoking Status: Former smoker How Often Do You Have a Drink Containing Alcohol: Never Recent Travel in [facility] within the Last 8 Weeks: No Recent Out of Country Travel within the Last 8 Weeks: No Immunization History Tetanus Immunization: Unsure Medications and Allergies Allergies Allergy/AdvReac Type Severity Reaction Status Date / Time penicillin G Allergy Severe Swelling Verified 01/01/19 23:09 of Lip/Tongue/Throat Home Medications Medication Instructions Recorded Confirmed Type lisinopril 25 mg PO DAILY 01/01/19 01/01/19 History Active Medications: Active Medications Acetaminophen (Tylenol) 650 mg PO Q4H PRN PRN Reason: Temp > 100.4 Al Hydroxide/Mg Hydroxide (Milk Of Magnesia Liq) 30 ml PO Q12H PRN PRN Reason: Mild Constipation Bisacodyl (Dulcolax Supp) 10 mg RECTAL DAILY PRN PRN Reason: SEVERE CONSITIPATION Sodium Chloride (Ns Inj) 1,000 mls @ 100 mls/hr IV.CONT .Q10H OLIVIA Lactulose (Lactulose Liq) 30 ml PO DAILY PRN PRN Reason: SEVERE CONSITIPATION Ondansetron HCl (Zofran Inj) 4 mg IV.PUSH Q6H PRN PRN Reason: NAUSEA OR VOMITING Senna/Docusate Sodium (Jessie-Colace) 1 tab PO BID [facility] Sennosides (Senokot) 17.2 mg PO Q12H PRN PRN Reason: Moderate Constipation Sodium Chloride (Ns Flush) 2 ml IV.FLUSH BID OLIVIA Sodium Chloride (Ns Flush) 2 ml IV.FLUSH PRN PRN PRN Reason: FLUSH AFTER USING IV ACCESS Physical Exam Vital signs: Vital Signs 01/01/19 22:08 01/02/19 00:00 01/02/19 02:00 Temperature 99.2 F Pulse Rate 124 H 90 94 H Respiratory Rate 24 18 18 Blood Pressure 120/61 133/61 139/69 Pulse Oximetry 100 100 99 01/02/19 02:02 01/02/19 04:33 01/02/19 06:07 Temperature Pulse Rate 106 H 104 H 94 H Respiratory Rate 20 18 18 Blood Pressure 117/58 L 120/59 L Pulse Oximetry 100 98 99 01/02/19 07:10 Temperature Pulse Rate 92 H Respiratory Rate 14 Blood Pressure 121/56 L Pulse Oximetry 98 Intake & Output 01/01/19 01/02/19 01/02/19 18:59 06:59 18:59 Intake Total 1700 / 1700 Balance 1700 / 1700 Weight 72.575 kg Intake: IV 1700 / 1700 Cipro 400 MG/200 ML Inj 400 mg 200 / 200 In 200 ml @ 200 mls/hr IV.SIG ONCE ONE Rx#:[id number] NS Inj 1,000 ML @ Wide Open IV. 1000 / 1000 SIG BOLUS ONE Rx#:[id number] NS Inj 500 ML @ Wide Open IV. 500 / 500 SIG BOLUS ONE Rx#:[id number] Other: # Voids 1 Constitutional no acute distress Routine HEENT Exam Eye: Present PERRL Routine Neck Exam Present supple Routine Respiratory Exam Present CTA bilaterally Routine Cardiovascular Exam Present RRR Routine Abdominal Exam Present soft Comments: minimal periumbilical tenderness. Routine Extremities Exam Comments: no pedal edema. Routine Neurological Exam Present alert and oriented X3 Results Labs CBC & Chem 7: 01/01/19 22:50 01/02/19 06:30 Imaging Impressions Chest X-Ray 01/01/19 22:33 CONCLUSION: Findings suggest small left pleural effusion. Chest CTA 01/02/19 00:00 CONCLUSION: 1. Emphysema without infiltrate or mass. 2. Subcentimeter pulmonary nodules, likely benign. CT chest in 6 months recommended. 3. Small bilateral pleural effusions. 4. Abdominal ascites with small hiatal hernia 5. No evidence for central pulmonary embolism. Caprini VTE Risk Assessment Caprini VTE Risk Assessment: Moderate/High Risk (score >= 2) Caprini Risk Assessment Model: Point Value = 1 Point Value = 2 Point Value = 3 Point Value = 5 Age 41-60 Minor surgery BMI > 25 kg/m2 Swollen legs Varicose veins or History of unexplained or recurrent spontaneous Oral contraceptives or hormone replacement Sepsis (< 1 month) Serious lung disease, including pneumonia (< 1 month) Abnormal pulmonary function Acute myocardial infarction Congestive heart failure (< 1 month) History of inflammatory bowel disease Medical patient at bed rest Age 61-74 Arthroscopic surgery Major open surgery (> 45 min) Laparoscopic surgery (> 45 min) Malignancy Confined to bed (> 72 hours) Immobilizing plaster cast Central venous access Age >= 75 History of VTE Family history of VTE Factor V Leiden Prothrombin [id number] Lupus anticoagulant Anticardiolipin antibodies Elevated serum homocysteine Heparin-induced thrombocytopenia Other congenital or acquired thrombophilia Stroke (< 1 month) Elective arthroplasty Hip, pelvis, or leg fracture Acute spinal cord injury (< 1 month) Prophylaxis Regimen: Total Risk Factor Score Risk Level Prophylaxis Regimen 0-1 Low Early ambulation 2 Moderate Order ONE of the following: *Sequential Compression Device (SCD) *Heparin 5000 units SQ BID 3-4 Higher Order ONE of the following medications: *Heparin 5000 units SQ TID *Enoxaparin/Lovenox 40 mg SQ daily (WT < 150 kg, CrCl > 30 mL/min) *Enoxaparin/Lovenox 30 mg SQ daily (WT < 150 kg, CrCl > 10-29 mL/min) *Enoxaparin/Lovenox 30 mg SQ BID (WT < 150 kg, CrCl > 30 mL/min) AND/OR *Sequential Compression Device (SCD) 5 or more Highest Order ONE of the following medications: *Heparin 5000 units SQ TID (Preferred with Epidurals) *Enoxaparin/Lovenox 40 mg SQ daily (WT < 150 kg, CrCl > 30 mL/min) *Enoxaparin/Lovenox 30 mg SQ daily (WT < 150 kg, CrCl > 10-29 mL/min) *Enoxaparin/Lovenox 30 mg SQ BID (WT < 150 kg, CrCl > 30 mL/min) AND *Sequential Compression Device (SCD) Assessment and Plan Plan A/P - acute kidney injury/ dehydration due to vomiting/diarrhea- currently on chemotherapy- now has improved. continue with IV fluid- will monitor the renal function and electrolytes- antiemetics as needed. -endometrial cancer- on chemo will consult [employer] Oncology ( ) -generalized weakness consult PT -hypertension BP controlled- hold Lisinopril for now and continue to monitor BP. -Hypokalemia will replace and monitor -possible UTI continue with Cipro and follow the cultures. -DVT prophylaxis with subq Lovenox Discussed Condition With: the patient. Discharge Planning: home - possibly tomorrow if stable- pending [facility] Oncology/PT evaluation.
[2019-01-02] MEDS: Sod Chloride 0.9% Inj 1,000 ML IV.CONT SCH ×2 (09:19→19:26)
[2019-01-02] MEDS: Senna/Docusate Sodium 8.6/50 MG Tablet PO SCH (09:21)
--- NOTE | 2019-01-02 10:02 | P.CON ---
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 Saha is currently being treated for recurrent endometrial cancer stage 1A grade 2. Currently she is on line 2 of Doxil 40mg/M2 at a 25% dose reduction. She received cycle #1 on 12/07/18. Patient states she started having nausea and vomiting about 2-3 days after her first cycle. She states she started feeling weak and that worsened. She also complaints of SOA even at rest. She states she was not taking any medication at home for nausea/ vomiting. She presented to ER for evaluation. CXR shown small left plural effusion, and she had a negative CTA. Review of Systems Constitutional: Reports weakness Cardiovascular: Reports shortness of breath Respiratory: Reports shortness of breath Gastrointestinal: Reports nausea, Reports vomiting PMFSH - History History Provided By: Patient - Medical History Medical History: Medical History (Last Reviewed 01/02/19 @ 08:37 by Jodie Benitez MD) Endometrial cancer H/O: hysterectomy Hypertension - Surgical History Surgical History: Surgical History (Last Reviewed 01/02/19 @ 08:37 by Jodie Benitez MD) H/O thyroidectomy - Family History Family History: Family History (Last Reviewed 01/02/19 @ 08:37 by Jodie Benitez MD) Other Cancer - Tobacco History Second Hand Smoke Exposure: No Smoking Status: Former smoker - Alcohol History How Often Do You Have a Drink Containing Alcohol: Never - Substance Use History Substance History: No History of Abuse - Travel History Recent Travel in the [place] Within the Last 8 Weeks: No Recent Travel Out of the Country Within the Last 8 Weeks: No - Immunization History Tetanus Immunization: Unsure Medications and Allergies Active Medications: Active Medications Acetaminophen (Tylenol) 650 mg PO Q4H PRN PRN Reason: Temp > 100.4 Al Hydroxide/Mg Hydroxide (Milk Of Magnesia Liq) 30 ml PO Q12H PRN PRN Reason: Mild Constipation Bisacodyl (Dulcolax Supp) 10 mg RECTAL DAILY PRN PRN Reason: SEVERE CONSITIPATION Sodium Chloride (Ns Inj) 1,000 mls @ 100 mls/hr IV.CONT .Q10H [facility] Last Admin: 01/02/19 09:19 Dose: 100 mls/hr Ciprofloxacin/Dextrose (Cipro 200 Mg/100 Ml Inj) 200 mg in 100 mls @ 100 mls/ hr IV.SIG Q12H [facility] Lactulose (Lactulose Liq) 30 ml PO DAILY PRN PRN Reason: SEVERE CONSITIPATION Ondansetron HCl (Zofran Inj) 4 mg IV.PUSH Q6H PRN PRN Reason: NAUSEA OR VOMITING Potassium Chloride (K-Dur) 40 meq PO ONCE ONE Stop: 01/02/19 13:01 Senna/Docusate Sodium (Jessie-Colace) 1 tab PO BID [facility] Last Admin: 01/02/19 09:21 Dose: Not Given Sennosides (Senokot) 17.2 mg PO Q12H PRN PRN Reason: Moderate Constipation Sodium Chloride (Ns Flush) 2 ml IV.FLUSH BID [facility] Last Admin: 01/02/19 09:18 Dose: 2 ml Sodium Chloride (Ns Flush) 2 ml IV.FLUSH PRN PRN PRN Reason: FLUSH AFTER USING IV ACCESS Allergies Allergy/AdvReac Type Severity Reaction Status Date / Time penicillin G Allergy Severe Swelling Verified 01/01/19 23:09 of Lip/Tongue/Throat Home Medications Medication Instructions Recorded Confirmed Type lisinopril 25 mg PO DAILY 01/01/19 01/01/19 History Doxil 01/02/19 01/02/19 History Physical Exam Vital signs: Vital Signs 01/01/19 22:08 01/02/19 00:00 01/02/19 02:00 Temperature 99.2 F Pulse Rate 124 H 90 94 H Respiratory Rate 24 18 18 Blood Pressure 120/61 133/61 139/69 Pulse Oximetry 100 100 99 01/02/19 02:02 01/02/19 04:33 01/02/19 06:07 Temperature Pulse Rate 106 H 104 H 94 H Respiratory Rate 20 18 18 Blood Pressure 117/58 L 120/59 L Pulse Oximetry 100 98 99 01/02/19 07:10 01/02/19 08:37 Temperature 99 F Pulse Rate 92 H 90 Respiratory Rate 14 16 Blood Pressure 121/56 L 120/68 Pulse Oximetry 98 Intake & Output 01/01/19 01/02/19 01/02/19 18:59 06:59 18:59 Intake Total 1700 / 1700 Balance 1700 / 1700 Weight 72.575 kg 70 kg Intake: IV 1700 / 1700 Cipro 400 MG/200 ML Inj 400 mg 200 / 200 In 200 ml @ 200 mls/hr IV.SIG ONCE ONE Rx#:[id number] NS Inj 1,000 ML @ Wide Open IV. 1000 / 1000 SIG BOLUS ONE Rx#:[id number] NS Inj 500 ML @ Wide Open IV. 500 / 500 SIG BOLUS ONE Rx#:[id number] Other: # Voids 1 Weight On Admission 70 kg - Constitutional no acute distress - Routine HEENT Exam Head: Present: normocephalic, atraumatic Eye: Present: EOMI, PERRL, normal accommodation - Routine Neck Exam Present: supple - Routine Respiratory Exam Present: CTA bilaterally - Routine Cardiovascular Exam Present: RRR - Routine Abdominal Exam Present: soft - Routine Extremities Exam Present: full ROM - Routine Skin Exam Present: intact - Routine Neurological Exam Present: alert, oriented X3 - Detailed Neurological Exam: Coma Scale Verbal Response: Oriented Motor Response: Obey commands - Routine Psychiatric Exam Present: normal affect Results - Labs CBC & Chem 7: 01/01/19 22:50 01/02/19 06:30 Labs: Laboratory Results - last 24 hr 01/01/19 01/01/19 01/01/19 22:50 22:50 22:50 WBC RBC Hgb Hct MCV MCH MCHC RDW Plt Count MPV Neut % (Auto) Lymph % (Auto) [place] % (Auto) Eos % (Auto) Baso % (Auto) Neut # (Auto) Lymph # (Auto) [place] # (Auto) Eos # (Auto) Baso # (Auto) WBC Differential Differential Comment PT 10.7 INR 1.1 APTT 28.9 D-Dimer Quant (PE/DVT) 14.50 H Sodium 141 Potassium 3.3 L Chloride 104 Carbon Dioxide 22.7 Anion Gap 14 BUN 24 H Creatinine 1.23 H Estimated GFR 53 L Random Glucose 103 Lactic Acid Calcium 8.8 Magnesium 2.4 Total Bilirubin 0.3 AST 47 H ALT 17 Alkaline Phosphatase 84 Total Creatine Kinase 42 Troponin I Less than 0.02 L B-Natriuretic Peptide 8 Total Protein 7.7 Albumin 2.3 L Lipase 75 Urine Color Urine Clarity Urine pH Ur Specific [place] Urine Protein Urine Glucose (UA) Urine Ketones Urine Occult Blood Urine Nitrate Urine Bilirubin Urine Ictotest Urine Urobilinogen Ur Leukocyte Esterase Urine RBC Urine WBC Ur Squamous Epith Cells Urine Bacteria Hyaline Casts Urine Mucus Micro UA Comment Ur Microscopic Review Urine Culture Comments 01/01/19 01/01/19 01/01/19 22:50 23:00 23:05 WBC 10.2 RBC 4.23 Hgb 11.2 L Hct 34.9 L MCV 82.7 MCH 26.4 L MCHC 32.0 RDW 14.3 Plt Count 435 MPV 8.9 Neut % (Auto) 78.4 H Lymph % (Auto) 8.5 L [place] % (Auto) 12.3 H Eos % (Auto) 0.3 Baso % (Auto) 0.5 Neut # (Auto) 8.0 H Lymph # (Auto) 0.9 L [place] # (Auto) 1.3 H Eos # (Auto) 0.0 Baso # (Auto) 0.0 WBC Differential . Differential Comment Auto diff final PT INR APTT D-Dimer Quant (PE/DVT) Sodium Potassium Chloride Carbon Dioxide Anion Gap BUN Creatinine Estimated GFR Random Glucose Lactic Acid 2.2 H Calcium Magnesium Total Bilirubin AST ALT Alkaline Phosphatase Total Creatine Kinase Troponin I B-Natriuretic Peptide Total Protein Albumin Lipase Urine Color [place] Urine Clarity Cloudy H Urine pH 5.0 Ur Specific [place] 1.027 Urine Protein 100 H Urine Glucose (UA) Negative Urine Ketones 20 Urine Occult Blood Small H Urine Nitrate Negative Urine Bilirubin Negative Urine Ictotest Negative Urine Urobilinogen 0.2 Ur Leukocyte Esterase Small H Urine RBC 9 H Urine WBC 22 H Ur Squamous Epith Cells 23 Urine Bacteria Few H Hyaline Casts 53 Urine Mucus Many H Micro UA Comment Culture indicated Ur Microscopic Review Not Reportable Urine Culture Comments Culture indicated 01/02/19 01/02/19 01:40 06:30 WBC RBC Hgb Hct MCV MCH MCHC RDW Plt Count MPV Neut % (Auto) Lymph % (Auto) [place] % (Auto) Eos % (Auto) Baso % (Auto) Neut # (Auto) Lymph # (Auto) [place] # (Auto) Eos # (Auto) Baso # (Auto) WBC Differential Differential Comment PT INR APTT D-Dimer Quant (PE/DVT) Sodium 142 Potassium 3.2 L Chloride 106 Carbon Dioxide 25.4 Anion Gap 11 BUN 20 H Creatinine 0.96 Estimated GFR 70 L Random Glucose 97 Lactic Acid 1.0 Calcium 8.3 L Magnesium Total Bilirubin 0.2 AST 41 H ALT 16 Alkaline Phosphatase 76 Total Creatine Kinase Troponin I B-Natriuretic Peptide Total Protein 6.8 D Albumin 2.1 L Lipase Urine Color Urine Clarity Urine pH Ur Specific [place] Urine Protein Urine Glucose (UA) Urine Ketones Urine Occult Blood Urine Nitrate Urine Bilirubin Urine Ictotest Urine Urobilinogen Ur Leukocyte Esterase Urine RBC Urine WBC Ur Squamous Epith Cells Urine Bacteria Hyaline Casts Urine Mucus Micro UA Comment Ur Microscopic Review Urine Culture Comments - Imaging Impressions Chest X-Ray 01/01/19 22:33 CONCLUSION: Findings suggest small left pleural effusion. Chest CTA 01/02/19 00:00 CONCLUSION: 1. Emphysema without infiltrate or mass. 2. Subcentimeter pulmonary nodules, likely benign. CT chest in 6 months recommended. 3. Small bilateral pleural effusions. 4. Abdominal ascites with small hiatal hernia 5. No evidence for central pulmonary embolism. 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 Hsu and any further orders to follow.
--- NOTE | 2019-01-02 12:35 | ECG ---
Date Performed: 01/01/2019 Time Performed: 22:26:36 PTAGE: 68 years EKG: SINUS TACHYCARDIA MINIMAL ST DEPRESSION ABNORMAL RHYTHM ECG Compared to PREVIOUS TRACING rate has increased with some nonspecific ST depression over the inferio r lateral leads Clinical correlation is recommended PREVIOUS TRACIN02/15/2017 09.32 DOCTOR: Lloyd Dugan Interpretating Date/Time 01/02/2019 12:34:25
--- NOTE | 2019-01-02 12:35 | ECG ---
Date Performed: 01/02/2019 Time Performed: 06:26:01 PTAGE: 68 years EKG: Sinus rhythm NORMAL ECG Compared to PREVIOUS TRACING EKG has normalized PREVIOUS TRACIN01/01/19 DOCTOR: Lloyd Dugan Interpretating Date/Time 01/02/2019 12:34:53
--- NOTE | 2019-01-02 14:20 | MB ---
cc: Kaycee Hsu MD, Mohammadreza MD DATE: 01/02/2019 PHYSICIAN REQUESTING CONSULT: Ana Benitez MD. REASON FOR CONSULTATION: The patient is known to us with ongoing chemotherapy. REASON FOR ADMISSION: Decreased appetite, decreased oral intake, nausea, vomiting, diarrhea, failure to thrive. HISTORY OF PRESENT ILLNESS: This patient is seen. Her findings are reviewed. She is counseled by me and examined by me in conjunction with our nurse practitioner (Aliya Salazar). I agree with her findings, assessment and plan of care. This is a 68-year-old female who recently started her second line of chemotherapy with liposomal doxorubicin. Her treatment was on 12/04/2018, I believe with 25% dose reduction. She tolerated the treatment immediately well, but about a week later, she started having decreased appetite, feeling a sense of pressure after she ate or drank such that she could not eat or drink much in volume. This persisted and she started having some nausea with vomiting. She has also had intermittent diarrhea. She does not believe she has been febrile. At times, she feels fatigued and feels short of breath. She was seen in the emergency room where she evaluation has been started. She is on IV fluids. She reports that she is feeling somewhat better now that IV fluids have been started. She had a chest x-ray as well as a chest CT angiogram. Changes of emphysema were noted, but there was no infiltrate or mass. There was a subcentimeter pulmonary nodule, etiology uncertain, favor benign, small bilateral pleural effusions. Some ascites was noted with a hiatal hernia. No evidence of pulmonary emboli. Chest x-ray: Small left pleural effusion was noted. DIAGNOSTIC DATA: Most recent labs: H and H 11.2 and 34.9, white count 10.9. Electrolytes notable for a potassium low at 3.2. Renal function is preserved with a BUN and creatinine at 20 and 0.96. Her past medical history, surgical history, medications, allergies, family history are all as outlined in the chart. I have nothing new to add to that. REVIEW OF SYSTEMS: As per history of present illness. She denies any bleeding. No one else in the family has been sick. She has not to her knowledge felt like she has been febrile. In discussions, she states that with her previous chemotherapy, she felt poorly for the first week or so and then rebounded, and in this case she actually initially felt okay but started feeling worse and her treatment was now almost 4 weeks ago, so it seems a bit atypical to be related to treatment. Included in our discussion is the possibility that she may have a viral illness or some other cause of her upset stomach and associated symptoms as it is unusual for liposomal doxorubicin to have such an effect on the GI system and it is unusual to have an effect 4 weeks after treatment. In discussion with her, she is willing to consider another cycle of liposomal doxorubicin once she gets feeling better and I would favor that as opposed to prematurely discontinuing a medication that may in fact not be a cause of her current symptoms and may be helpful for her underlying illness. Discussion ensued. Questions were asked and answered. She expressed good understanding. PHYSICAL EXAMINATION: GENERAL: She is resting comfortably in bed. VITAL SIGNS: She is afebrile with a temperature of 98, pulse 78, respirations 18, blood pressure 124/68. GENERAL: She is alert and oriented x3, no acute distress. She is accompanied by a family member. HEENT: Mucous membranes do not appear dry. She is slightly pale. ABDOMEN: Nontender, nondistended, other than slightly with maybe a bit of appreciable fluid, but there is no rebound or guarding and is nonacute. She is feeling poorly and more questions were asked and answered. She expressed good understanding and hope that she gets to feeling better. There are some additional tests pending. She is on isolation now until we can exclude the possibility of Clostridium difficile infection. ASSESSMENT: 1. Recurrent stage IA, grade 2 endometrial cancer. 2. Currently on second-line liposomal doxorubicin chemotherapy, status post first cycle approximately 4 weeks ago. 2. Gastrointestinal symptoms as noted above. 3. Symptoms may or may not be related to the treatment as they seem atypical for this regimen and to manifest this late after treatment. DISCUSSION: 1. I am grateful for the excellent medical care. 2. Agree with fluid and electrolyte repletion with supportive care with antiemetics. 3. From an oncology standpoint prior to her next treatment, we will front load with antiemetics and continue her on medication to try to reduce any chance of chemotherapy-related gastrointestinal symptoms. 4. Continue present management. Thank you for the consultation. MD ASTON Sheriff/lizy/ryan , 12:43 PM , 12:56 PM
[2019-01-02] MEDS: Ciprofloxacin 200 MG/100 ML 200 MG/100 ML PIGGYBACK IV.SIG SCH (14:52)
[2019-01-03] MEDS: Ciprofloxacin 200 MG/100 ML 200 MG/100 ML PIGGYBACK IV.SIG SCH ×2 (03:04→13:47)
[2019-01-03] MEDS: Senna/Docusate Sodium 8.6/50 MG Tablet PO SCH ×3 (03:04→21:28)
[2019-01-03] MEDS: Sod Chloride 0.9% Inj 1,000 ML IV.CONT SCH ×3 (03:05→23:24)
--- NOTE | 2019-01-03 08:36 | P.PNIM ---
Subjective Interval history: Follow-up for post chemo nausea/vomiting, diarrhea, weakness. The patient is seen sitting upright on side of bed, reports feeling better today. She is tolerating some oral intake. She has not had any further diarrhea since arrival. Denies any nausea or vomiting. She reports mild epigastric pain which she attributes to the vomiting. Denies any chest pain. Denies any fevers or chills. She reports continued weakness and fatigue on exertion, however she still wants to go home. Plans to follow-up with Dr. Hsu, originally supposed to have chemo session this week, however will be delayed due to illness/hospitalization. Physical Exam Vital signs: Vital Signs 01/02/19 08:37 01/02/19 11:55 01/02/19 16:16 Temperature 99 F 98.2 F 98.4 F Pulse Rate 90 78 82 Respiratory Rate 16 18 16 Blood Pressure 120/68 124/68 122/68 Pulse Oximetry 95 01/02/19 20:00 01/02/19 23:55 01/03/19 00:00 Temperature 98.0 F Pulse Rate 95 H 102 H 97 H Respiratory Rate 16 16 Blood Pressure 124/68 137/74 Pulse Oximetry 99 97 Intake & Output 01/02/19 01/03/19 01/03/19 18:59 06:59 18:59 Intake Total 580 / 580 2100 / 2100 Balance 580 / 580 2100 / 2100 Weight 70 kg 70 kg Intake: IV 100 / 100 2099 / 2100 NS Inj 1,000 ML @ 100 mls/hr IV 1999 / 1999 .CONT .Q10H [facility] Rx#:[id number] Cipro 200 MG/100 ML Inj 200 mg 100 / 100 100 / 100 In 100 ml @ 100 mls/hr IV.SIG Q12H [facility] Rx#:[id number] Oral 480 / 480 Other: # Voids 1 Date of Last Bowel Movement 01/01/19 Weight On Admission 70 kg Narrative: GENERAL: Well-nourished, well-developed pleasant female patient in [facility]. SKIN: Warm and dry. No rash. HEENT: Normocephalic. Atraumatic. Pupils equal and round. Mucous membranes pink and moist. CARDIOVASCULAR: Regular rate and rhythm. No murmur appreciated. RESPIRATORY: No accessory muscle use. Clear to auscultation. Breath sounds equal bilaterally. GASTROINTESTINAL: Abdomen soft, nondistended, mild epigastric tenderness to palpation. Normoactive bowel sounds x4. MUSCULOSKELETAL: No obvious deformities. Extremities without clubbing, cyanosis , or edema. NEUROLOGICAL: Awake and alert. No obvious cranial nerve deficits. Moving all extremities spontaneously. Normal speech. PSYCHIATRIC: Appropriate mood and affect; insight and judgment normal. Results Labs CBC & Chem 7: 01/03/19 09:45 01/03/19 09:45 Labs: Microbiology 01/01/19 23:05 Blood - Peripheral Aerobic Blood Culture - Preliminary No growth in 1 day 01/01/19 23:05 Blood - Peripheral Anaerobic Blood Culture - Preliminary No growth in 1 day 01/01/19 23:05 Blood - Peripheral Aerobic Blood Culture - Preliminary No growth in 1 day 01/01/19 23:05 Blood - Peripheral Anaerobic Blood Culture - Preliminary No growth in 1 day Assessment and Plan Plan 68 y/o female with PMH of HTN and endometrial cancer currently undergoing chemotherapy presenting for dehydration, n/v, and diarrhea. Acute kidney injury: most likely s/t dehydration due to vomiting/diarrhea. Currently on chemotherapy. Cr: 1.23, lactic acid 2.2. -Continue with IVF hydration -Avoid nephrotoxins -Cr trending down 1.23 --> 0.96 --> 0.84 -Lactic acid improved 2.2 --> 1.0 -Patient feeling better today, tolerating oral intake Generalized weakness/Shortness of breath, acute: possibly secondary to vomiting/ diarrhea/decreased oral intake, in combination with cancer undergoing chemotherapy -D-Dimer was 14.5 -Chest x-ray showed findings suggestive of a small left pleural effusion. -Chest CTA shows emphysema without infiltrate or mass, subcentimeter pulmonary nodules, likely benign, small bilateral pleural effusions, abdominal ascites with small hiatal hernia, no evidence for central PE. -Consulted PT, appreciate recommendations -Supportive treatment -O2 sat stable on room air Hypokalemia: K: 3.3 -Given KCl replacement -Trending potassium 3.3 --> 3.2 --> 3.4, improving Possible UTI -Continue empiric abx treatment with Cipro -Urine culture pending Endometrial cancer: active, undergoing chemotherapy. 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 Possible Bacteremia: 1/4 blood cultures with gram positive staph epidermidis, possible contaminant -no active signs of infection, will hold off on antibiotics at this time -will start vanco if any further positive blood cultures -repeat stat blood culture now -will hold off on discharge until cultures negative, confirming contaminant -DVT prophylaxis with subq Lovenox Progress Note: Quality VTE Deep Vein Thrombosis/Pulmonary Embolism Present on Admission: No
[2019-01-03 10:17] LABS: Baso % (Auto) 0.4 % (0.0-2.0); Eos % (Auto) 0.4 % (0.0-4.0); Hematocrit 32.7 % (35.0-46.0); Hemoglobin 10.6 gm/dL (11.6-15.3); Lymph # (Auto) 0.7 th/mm3 (1.0-4.8); Lymph % (Auto) 5.9 % (9.0-44.0); Mean Corpuscular HGB Conc 32.5 % (32.0-36.0); Mean Corpuscular Hemoglobin 26.1 pg (27.0-34.0); Mean Corpuscular Volume 80.3 fL (80.0-100.0); Mean Platelet Volume 8.8 fL (7.0-11.0); Mono # (Auto) 1.2 th/mm3 (0.0-0.9); Mono % (Auto) 11.1 % (0.0-8.0); Neut # (Auto) 9.2 th/mm3 (1.8-7.7); Neut % (Auto) 82.2 % (16.0-70.0); Platelet Count 423 th/mm3 (150-450); Red Blood Count 4.07 mil/mm3 (4.00-5.30); White Blood Count 11.2 th/mm3 (4.0-11.0)
[2019-01-03 10:31] LABS: Calcium 8.9 mg/dL (8.5-10.1); Carbon Dioxide 20.7 meq/L (21.0-32.0); Potassium 3.4 meq/L (3.5-5.1)
--- NOTE | 2019-01-03 12:49 | P.PNSTU ---
Subjective - Remarks Follow up of 68 y/o woman for generalized weakness, diarrhea, nausea and vomiting for the past week. She said it started as a loss of appetite following her last chemotherapy for endometrial cancer, eventually she started having the diarrhea and N/V and started to feel weak. States she is feeling better today. Has not had an episode of diarrhea for 2 days. Denies current nausea or vomiting. She does complain of mild epigastric pain and shortness of breath. She states she got up earlier in the morning to "wash up" and then felt weak and mildly short of breath. Patient was eating during our talk and says her appetite has improved. Patient relates this event to her recent chemotherapy but states that she did not experience symptoms like this after her first chemotherapy session. She has no other medical complaints at this time. Objective Vital Signs: Vital Signs 01/02/19 16:16 01/02/19 20:00 01/02/19 23:55 Temperature 98.4 F 98.0 F Pulse Rate 82 95 H 102 H Respiratory Rate 16 16 16 Blood Pressure 122/68 124/68 137/74 Pulse Oximetry 99 97 01/03/19 00:00 01/03/19 08:58 01/03/19 11:50 Temperature 98.2 F 98.3 F Pulse Rate 97 H 116 H 90 Respiratory Rate 18 Blood Pressure 112/75 134/77 Pulse Oximetry 98 Intake & Output 01/02/19 01/03/19 01/03/19 18:59 06:59 18:59 Intake Total 580 / 580 2099 / 2100 Balance 580 / 580 2099 / 2100 Weight 70 kg 70 kg Intake: IV 100 / 100 2099 / 2100 NS Inj 1,000 ML @ 100 mls/hr IV 1999 .CONT .Q10H [facility] Rx#:[id number] Cipro 200 MG/100 ML Inj 200 mg 100 / 100 100 / 100 In 100 ml @ 100 mls/hr IV.SIG Q12H [facility] Rx#:[id number] Oral 480 / 480 Other: # Voids 1 Date of Last Bowel Movement 01/01/19 Weight On Admission 70 kg Result Diagrams: 01/03/19 09:45 01/03/19 09:45 Medications and IVs: Active Medications Acetaminophen (Tylenol) 650 mg PO Q4H PRN PRN Reason: Temp > 100.4 Al Hydroxide/Mg Hydroxide (Milk Of Magnesia Liq) 30 ml PO Q12H PRN PRN Reason: Mild Constipation Bisacodyl (Dulcolax Supp) 10 mg RECTAL DAILY PRN PRN Reason: SEVERE CONSITIPATION Sodium Chloride (Ns Inj) 1,000 mls @ 100 mls/hr IV.CONT .Q10H [facility] Last Admin: 01/03/19 03:05 Dose: 100 mls/hr Ciprofloxacin/Dextrose (Cipro 200 Mg/100 Ml Inj) 200 mg in 100 mls @ 100 mls/ hr IV.SIG Q12H [facility] Last Infusion: 01/03/19 04:08 Dose: Infused Lactulose (Lactulose Liq) 30 ml PO DAILY PRN PRN Reason: SEVERE CONSITIPATION Ondansetron HCl (Zofran Inj) 4 mg IV.PUSH Q6H PRN PRN Reason: NAUSEA OR VOMITING Senna/Docusate Sodium (Jessie-Colace) 1 tab PO BID [facility] Last Admin: 01/03/19 09:49 Dose: Not Given Sennosides (Senokot) 17.2 mg PO Q12H PRN PRN Reason: Moderate Constipation Sodium Chloride (Ns Flush) 2 ml IV.FLUSH BID [facility] Last Admin: 01/03/19 03:04 Dose: 2 ml Sodium Chloride (Ns Flush) 2 ml IV.FLUSH PRN PRN PRN Reason: FLUSH AFTER USING IV ACCESS Objective Remarks: GENERAL: Pleasant, well-developed, well-nourished elderly AA female patient in [facility]. SKIN: No visible rashes, ecchymoses or lesions. Warm and dry. NECK: Trachea midline. Supple. CARDIOVASCULAR: Regular rate and rhythm without appreciable murmurs, gallops, or rubs. RESPIRATORY: Clear to auscultation. Breath sounds equal bilaterally. GASTROINTESTINAL: Abdomen soft, mildly diffusely tender to palpation. No guarding. Normoactive bowel sounds x4. MUSCULOSKELETAL: No obvious deformities. Extremities without clubbing, cyanosis , or edema. NEUROLOGICAL: Awake and alert. Motor and sensory grossly within normal limits. Normal speech. Assessment and Plan Assessment and Plan: 68 y/o female with PMH of HTN and endometrial cancer currently undergoing chemotherapy presenting for dehydration, n/v, and diarrhea. -Acute kidney injury: most likely s/t dehydration due to vomiting/diarrhea. Currently on chemotherapy. Cr: 1.23 -Continue with IVF hydration -Avoid nephrotoxins -Cr trending down 1.23 --> 0.96 --> 0.84 -Lactic acid improved 2.2 --> 1.0 -Patient feeling better today, able to eat her breakfast. Generalized weakness/Shortness of breath, acute: possibly secondary to vomiting/ diarrhea/decreased oral intake. -Initial D-Dimer was 14.5 -Chest x-ray showed findings suggestive of a small left pleural effusion. -Chest CTA shows emphysema without infiltrate or mass, subcentimeter pulmonary nodules, likely benign, small bilateral pleural effusions, abdominal ascites with small hiatal hernia, no evidence for central PE. -Consulted PT, appreciate recommendations -Supportive treatment Hypokalemia: K: 3.3 -Given one time KCl 40 mg PO -Trending potassium 3.3 --> 3.2 --> 3.4 Possible UTI -Continue empiric abx treatment with Cipro -Pending cultures Endometrial cancer, undergoing chemotherapy. -Will consult [facility] Oncology () Hypertension, Chronic: -BP controlled -Continue to hold Lisinopril for now and continue to monitor BP. -DVT prophylaxis with subq Lovenox
[2019-01-03 17:02] VITALS: RESP 16
--- NOTE | 2019-01-03 20:39 | ECG ---
Date Performed: 01/03/2019 Time Performed: 05:22:12 PTAGE: 68 years EKG: Sinus rhythm NORMAL ECG PREVIOUS TRACING : 01/02/2019 06.26 Since the previous tracing, no significant change noted DOCTOR: Fan Romero Interpretating Date/Time 01/03/2019 20:37:24
[2019-01-04] MEDS: Ciprofloxacin 200 MG/100 ML 200 MG/100 ML PIGGYBACK IV.SIG SCH ×2 (03:42→14:00)
[2019-01-04 07:25] LABS: Baso % (Auto) 0.4 % (0.0-2.0); Eos # (Auto) 0.1 th/mm3 (0.0-0.4); Eos % (Auto) 0.7 % (0.0-4.0); Hematocrit 33.2 % (35.0-46.0); Hemoglobin 10.8 gm/dL (11.6-15.3); Lymph # (Auto) 0.5 th/mm3 (1.0-4.8); Lymph % (Auto) 4.4 % (9.0-44.0); Mean Corpuscular HGB Conc 32.5 % (32.0-36.0); Mean Corpuscular Hemoglobin 26.7 pg (27.0-34.0); Mean Platelet Volume 8.7 fL (7.0-11.0); Mono % (Auto) 9.1 % (0.0-8.0); Neut # (Auto) 9.6 th/mm3 (1.8-7.7); Neut % (Auto) 85.4 % (16.0-70.0); Platelet Count 397 th/mm3 (150-450); Red Blood Count 4.04 mil/mm3 (4.00-5.30); White Blood Count 11.2 th/mm3 (4.0-11.0)
[2019-01-04 07:38] LABS: Calcium 8.4 mg/dL (8.5-10.1); Carbon Dioxide 23.2 meq/L (21.0-32.0); Potassium 3.4 meq/L (3.5-5.1)
[2019-01-04] MEDS: Sod Chloride 0.9% Inj 1,000 ML IV.CONT SCH (08:15)
[2019-01-04] MEDS: Senna/Docusate Sodium 8.6/50 MG Tablet PO SCH (08:23)
[2019-01-04 12:08] VITALS: PULSE 92
[2019-01-04 12:25] VITALS: BP 157/73; TEMP 99.2; O2SAT 97
--- NOTE | 2019-01-04 16:17 | P.PNIM ---
Subjective Interval history: seen with supportive at bedside and summer feels well no further nausea or vomting tolerating po but per family- poor po - we discuss about ensure or boost- - states he got her some no diarrhea no urinary symptoms Physical Exam Vital signs: Vital Signs 01/03/19 17:00 01/03/19 20:00 01/03/19 23:37 Temperature 98.9 F 98.6 F Pulse Rate 106 H 106 H 109 H Respiratory Rate 16 16 16 Blood Pressure 138/71 142/72 H 164/77 H Pulse Oximetry 99 99 99 01/04/19 04:00 01/04/19 07:30 01/04/19 08:03 Temperature 98.6 F Pulse Rate 106 H 90 93 H Respiratory Rate 16 16 Blood Pressure 146/75 H 143/70 H Pulse Oximetry 99 98 01/04/19 12:00 01/04/19 12:05 01/04/19 15:16 Temperature 99.2 F Pulse Rate 107 H 92 H 92 H Respiratory Rate 16 Blood Pressure 157/73 H Pulse Oximetry 97 Intake & Output 01/03/19 01/04/19 01/04/19 18:59 06:59 18:59 Intake Total 1100 / 1100 876 / 876 1000 / 1000 Balance 1100 / 1100 876 / 876 1000 / 1000 Intake: IV 1100 / 1100 876 / 876 1000 / 1000 NS Inj 1,000 ML @ 100 mls/hr IV 1000 / 1000 776 / 776 1000 / 1000 .CONT .Q10H [facility] Rx#:[id number] Cipro 200 MG/100 ML Inj 200 mg 100 / 100 100 / 100 In 100 ml @ 100 mls/hr IV.SIG Q12H [facility] Rx#:[id number] Other: # Voids 1 Date of Last Bowel Movement 01/02/19 Narrative: awake and alert, no distress anciteric thorat no thrush neck supple'lungs- clear regular rhythm abdomensoft, nontender extrmeites no edema neuro exam- non focal Results Labs CBC & Chem 7: 01/04/19 07:08 01/04/19 07:08 Labs: Microbiology 01/03/19 13:12 Blood - Peripheral Aerobic Blood Culture - Preliminary No growth in 1 day 01/03/19 13:12 Blood - Peripheral Anaerobic Blood Culture - Preliminary No growth in 1 day 01/01/19 23:05 Blood - Peripheral Aerobic Blood Culture - Preliminary No growth in 3 days 01/01/19 23:05 Blood - Peripheral Anaerobic Blood Culture - Preliminary Staphylococcus epidermidis 01/01/19 23:05 Blood - Peripheral Aerobic Blood Culture - Preliminary No growth in 3 days 01/01/19 23:05 Blood - Peripheral Anaerobic Blood Culture - Preliminary No growth in 3 days 01/01/19 23:00 Clean Catch Urine Urine Culture - Final 50-100,000 cfu/mL mixed gram positive josué (probable contaminants) Assessment and Plan Plan 68 y/o female with PMH of HTN and endometrial cancer currently undergoing chemotherapy presenting for dehydration, n/v, and diarrhea. Acute kidney injury: most likely s/t dehydration due to vomiting/diarrhea. Currently on chemotherapy. Cr: 1.23, lactic acid 2.2. imrpoved - advise patient fluids -on diet supplements Generalized weakness/Shortness of breath, acute: possibly secondary to vomiting/ diarrhea/decreased oral intake, in combination with cancer undergoing chemotherapy- Improved -D-Dimer was 14.5 -Chest x-ray showed findings suggestive of a small left pleural effusion. -Chest CTA shows emphysema without infiltrate or mass, subcentimeter pulmonary nodules, likely benign, small bilateral pleural effusions, abdominal ascites with small hiatal hernia, no evidence for central PE. -Consulted PT, appreciate recommendations -Supportive treatment -O2 sat stable on room air Hypokalemia: K: 3.3 - per family - chronic- patient has K supplements prescribed to her by PCP advise on eating talon- but patient does not like them Pyuria- final cand s- no growth + Blood cultures 1/4- likely contaminant Blood cultre + 1/4- likely contaminant- s epidermidis- On IV ciprofloxacine instruct to continue ciprofloxacin 500 mg po bid x 1 more day- total 3 days course Endometrial cancer: active, undergoing chemotherapy. OP ff up [facility] Oncology (), appreciate assistance -Continue outpatient f/up Hypertension, Chronic: -BP controlled - conitnue Lisinorpil on DC -DVT prophylaxis with subq Lovenox encourage to take supplements dietary- very supportive family DC home today OP ff up with PCP- Andreas doctor- OP ff up with Oncology- Dr Hsu Progress Note: Quality VTE Deep Vein Thrombosis/Pulmonary Embolism Present on Admission: No
== END 2019-01-04 17:11 | disposition home or self-care (01) | DRG 683 ==
LOC: NEPE 22:05 → INTOOBSV 01-02 01:50 → NEDA 01-02 01:50 → NEPFCDU 01-02 07:22
PROVIDERS: ADMIT Internal Medicine; ATTEND Internal Medicine
CPT/HCPCS: 71010; 71045; 71275; 80048; 80053; 81001; 82550; 83520; 83605; 83690; 83735; 83880; 84484; 85025; 85379; 85610; 85730; 87040; 87086; 87149; 87186; 87205; 87275; 87276; 87493; 87804; 90761; 90774; 90784; 93005; 94664; 96361; 96374; 97110; 97116; 97162; 99285; C8952; J0744; J2405; J7030; J7040; Q9967